=== PATIENT | female | born 1955 | race Caucasian/White ===

== ENCOUNTER → 2018-02-28 | Outpatient (CLI) | payer MEDICARE, BC ==
[~2018-02-28] MED LIST: None per pt.
[2018-02-28 12:13] LABS: BASOPHILS # (AUTO) 0.05 x10^3/uL (0-0.1); BASOPHILS % (AUTO) 1 % (0-1); EOSINOPHILS # (AUTO) 0.19 x10^3/uL (0-0.4); EOSINOPHILS % (AUTO) 3 % (1-7); LYMPHOCYTES # (AUTO) 1.79 x10^3/uL (1-3.4); LYMPHOCYTES % (AUTO) 27 % (22-44); MD NO; MEAN CORPUSCULAR HEMOGLOBIN 27.6 pg (27.0-34.8); MEAN CORPUSCULAR HGB CONC 33.7 g/dL (32.4-35.8); MEAN CORPUSCULAR VOLUME 81.9 fL (80-100); MONOCYTES # (AUTO) 0.74 x10^3/uL (0.2-0.8); MONOCYTES % (AUTO) 11 % (2-9); NEUTROPHILS # (AUTO) 3.83 x10^3/uL (1.8-6.8); NEUTROPHILS % (AUTO) 58 % (42-75); PLATELET COUNT 332 x10^3/uL (130-400); RED BLOOD COUNT 4.75 x10^6/uL (3.82-5.3); RED CELL DISTRIBUTION WIDTH 15.1 % (9.6-15.2)
[2018-02-28 12:21] LABS: INTERNATIONAL NORMALIZED RATIO 0.95 (0.93-1.1); PROTHROMBIN TIME 9.9 Seconds (9.6-11.5)
[2018-02-28 12:23] LABS: ALANINE AMINOTRANSFERASE 24 U/L (12-78); ALBUMIN 3.4 g/dL (3.4-5.0); ANION GAP 7 mmol/L (5-15); CHLORIDE 108 mmol/L (98-107); CREATININE 0.76 mg/dL (0.55-1.02)
[2018-02-28 12:26] LABS: ALKALINE PHOSPHATASE 143 U/L (45-117); BILIRUBIN,TOTAL 0.4 mg/dL (0.2-1.0); TOTAL PROTEIN 7.8 g/dL (6.4-8.2)
== END | disposition home or self-care (01) ==
LOC: STAR 11:20
PROVIDERS: ATTEND Specialist
DX: Z01.818 Encounter for other preprocedural examination (principal); C54.1 Malignant neoplasm of endometrium
CPT/HCPCS: 36415; 71046; 80053; 85025; 85610; 85730; 86304; 93005

== ENCOUNTER 2018-03-04 10:20 | Inpatient (IN) | payer MEDICARE, BC ==
[~2018-03-04] VITALS: Ht 157.5 cm; Wt 97.9 kg
[~2018-03-04 10:20] MED LIST changes: +BUPIVACAINE/PF-EPI 0.25% 1:200K ONE; +HEPARIN 1,000 UNITS/ML, 10ML ONE; +INDOCYANINE GREEN 25 MG VIAL ONE
[2018-03-04] MEDS ORDERED: LACTATED RINGERS 1,000 ML IV SCH (10:37)
[2018-03-04] MEDS ORDERED: LIDOCAINE-MPF 1%, 2ML INFIL ONE (11:00)
[2018-03-04] MEDS ORDERED: MIDAZOLAM 1 MG/ML, 2ML ONE (13:56)
[2018-03-04] MEDS ORDERED: FENTANYL PF 250 MCG/5ML ONE (13:56)
[2018-03-04] MEDS ORDERED: LABETALOL 5MG/ML, 20ML ONE (15:22)
[2018-03-04] MEDS ORDERED: CLINDAMYCIN 150 MG/ML, 6ML ONE (15:29)
[2018-03-04] MEDS ORDERED: CEFAZOLIN 1,000 MG ONE (16:03)
[2018-03-04] MEDS ORDERED: ROCURONIUM 10MG/ML,5ML ONE (16:03)
[2018-03-04] MEDS ORDERED: PROPOFOL 10 MG/ML, 20ML ONE (16:03)
[2018-03-04] MEDS ORDERED: DEXAMETHASONE 4 MG/ML, 1ML ONE (16:03)
[2018-03-04] MEDS ORDERED: ONDANSETRON 2MG/ML, 2ML ONE (16:03)
[2018-03-04] MEDS ORDERED: NEOSTIGMINE 1 MG/ML, 10ML ONE (16:03)
[2018-03-04] MEDS ORDERED: GLYCOPYRROLATE 0.2MG/1ML, 5ML ONE (16:03)
[2018-03-04] MEDS ORDERED: SUCCINYLCHOLINE 20 MG/ML, 10ML ONE (16:03)
[2018-03-04] MEDS ORDERED: FENTANYL PF 100 MCG/2ML ONE (16:21)
[2018-03-04] MEDS ORDERED: ONDANSETRON 2MG/ML, 2ML IV PRN ×3 (18:30→20:00)
[2018-03-04] MEDS ORDERED: PROMETHAZINE 25 MG/ML, 1ML IV PRN (18:30)
[2018-03-04] MEDS ORDERED: LABETALOL 5MG/ML, 20ML IV PRN (18:30)
[2018-03-04] MEDS ORDERED: hydrALAzine 20 MG/ML, 1ML IV PRN (18:30)
[2018-03-04] MEDS ORDERED: OXYcodone 5 MG/5 ML ORAL.SOL UDC PO PRN ×2 (18:30)
[2018-03-04] MEDS ORDERED: ONDANSETRON ODT 8 MG PO PRN (18:30)
[2018-03-04] MEDS ORDERED: FENTANYL PF 100 MCG/2ML IV PRN ×2 (18:30)
[2018-03-04] MEDS ORDERED: HYDROcodone/APAP 7.5-325MG/15ML UDC PO PRN (18:30)
[2018-03-04] MEDS ORDERED: ACETAMINOPHEN 325 MG TABLET PO PRN ×2 (18:30)
[2018-03-04] MEDS ORDERED: MORPHINE SULFATE 4 MG/ML, 1ML IVPush PRN (18:30)
[2018-03-04] MEDS ORDERED: HYDROmorphone 1 MG/ML, 1ML IV PRN (18:30)
[2018-03-04 19:30] VITALS: BP 106/46
[2018-03-04] MEDS ORDERED: OXYcodone/APAP 5/325MG TABLET PO PRN (20:00)
[2018-03-04] MEDS ORDERED: KETOROLAC 30 MG/1 ML IV PRN (20:00)
[2018-03-04] MEDS: LACTATED RINGERS 1,000 ML IV SCH (20:00)
[2018-03-04] MEDS ORDERED: SODIUM CHLORIDE FLUSH 3ML SYRINGE IVF SCH (21:00)
[2018-03-04] MEDS: SODIUM CHLORIDE FLUSH 10ML SYR IVF SCH (21:00)
[2018-03-05 00:12] VITALS: BP 126/66
[2018-03-05 03:19] VITALS: BP 139/70
[2018-03-05 05:10] LABS: BASOPHILS # (AUTO) 0.06 x10^3/uL (0-0.1); BASOPHILS % (AUTO) 1 % (0-1); EOSINOPHILS % (AUTO) 0 % (1-7); LYMPHOCYTES # (AUTO) 0.85 x10^3/uL (1-3.4); LYMPHOCYTES % (AUTO) 8 % (22-44); MD NO; MEAN CORPUSCULAR HEMOGLOBIN 27.5 pg (27.0-34.8); MEAN CORPUSCULAR HGB CONC 33.1 g/dL (32.4-35.8); MEAN PLATELET VOLUME 9.4 fL (7.4-10.4); MONOCYTES # (AUTO) 0.63 x10^3/uL (0.2-0.8); MONOCYTES % (AUTO) 6 % (2-9); NEUTROPHILS # (AUTO) 9.12 x10^3/uL (1.8-6.8); NEUTROPHILS % (AUTO) 86 % (42-75); PLATELET COUNT 299 x10^3/uL (130-400); RED BLOOD COUNT 4.42 x10^6/uL (3.82-5.3)
[2018-03-05 05:19] LABS: ANION GAP 6 mmol/L (5-15); CALCIUM 8.3 mg/dL (8.5-10.1); CHLORIDE 108 mmol/L (98-107)
[2018-03-05] MEDS: LACTATED RINGERS 1,000 ML IV SCH (06:00)
[2018-03-05 07:34] VITALS: BP 93/56
[2018-03-05] MEDS: SODIUM CHLORIDE FLUSH 10ML SYR IVF SCH (08:50)
[2018-03-05] MEDS ORDERED: ONDA4TAB10 PO (11:50)
[2018-03-05] MEDS ORDERED: OXYC-306 PO (11:50)
[2018-03-05 14:17] VITALS: BP 112/68
[2018-03-14] MEDS ORDERED: CIPR500T87 PO (12:09)
[2018-03-14] MEDS ORDERED: DEXA4TAB66 PO (12:09)
== END 2018-03-05 15:05 | disposition home or self-care (01) | DRG 740 ==
LOC: OUT 10:20 → 4NOR 19:29 → OUT 20:31 → DCLOUNGE 03-05 14:46
PROVIDERS: ADMIT Specialist; ATTEND Specialist
PROC: 0UT90ZL Resection of Uterus, Supracervical, Open Approach (ICD-10-PCS; 2018-03-04)
PROC: 0UT20ZZ Resection of Bilateral Ovaries, Open Approach (ICD-10-PCS; 2018-03-04)
PROC: 0UT70ZZ Resection of Bilateral Fallopian Tubes, Open Approach (ICD-10-PCS; 2018-03-04)
PROC: 0DBU0ZZ Excision of Omentum, Open Approach (ICD-10-PCS; 2018-03-04)
PROC: 0T768DZ Dilation of Right Ureter with Intraluminal Device, Via Natural or Artificial Opening Endoscopic (ICD-10-PCS; 2018-03-04)
PROC: 8E0W4CZ Robotic Assisted Procedure of Trunk Region, Percutaneous Endoscopic Approach (ICD-10-PCS; principal; 2018-03-04 12:30)
DX: C54.1 Malignant neoplasm of endometrium (principal); C78.6 Secondary malignant neoplasm of retroperitoneum and peritoneum; Z85.42 Personal history of malignant neoplasm of other parts of uterus; Z85.3 Personal history of malignant neoplasm of breast; Z90.12 Acquired absence of left breast and nipple; Z98.84 Bariatric surgery status; Z88.1 Allergy status to other antibiotic agents; I25.2 Old myocardial infarction; Z82.49 Family history of ischemic heart disease and other diseases of the circulatory system; Z80.9 Family history of malignant neoplasm, unspecified
CPT/HCPCS: 36415; 80048; 85025; 86850; 86900; 86923; 88307; J0690; J1100; J1644; J2250; J2405; J2704; J2710; J3010; J3490; C1769; C2617; J0330; J7120

== ENCOUNTER 2018-04-29 05:32 | Day surgery (SDC) | payer MEDICARE, BC ==
[~2018-04-29] VITALS: Ht 157.5 cm; Wt 88.8 kg
[~2018-04-29 05:32] MED LIST changes: -BUPIVACAINE/PF-EPI 0.25% 1:200K ONE; +CIPR500T87 PO; +DEXA4TAB66 PO; -HEPARIN 1,000 UNITS/ML, 10ML ONE; -INDOCYANINE GREEN 25 MG VIAL ONE; +ONDA4TAB10 PO; +OXYC-306 PO
[2018-04-29] MEDS ORDERED: LACTATED RINGERS 1,000 ML IV SCH (06:02)
[2018-04-29 06:03] VITALS: BP 132/85
[2018-04-29] MEDS ORDERED: PLEASE ENTER HEIGHT AND WEIGHT MC SCH (06:30)
[2018-04-29] MEDS ORDERED: PROTAMINE SULFATE 10 MG/ML, 5ML ONE (07:01)
[2018-04-29] MEDS ORDERED: BUPIVACAINE/PF-EPI 0.25% 1:200K ONE (07:02)
[2018-04-29] MEDS ORDERED: HEPARIN 1,000 UNITS/ML, 10ML ONE (07:02)
[2018-04-29] MEDS ORDERED: FENTANYL PF 100 MCG/2ML ONE (07:08)
[2018-04-29] MEDS ORDERED: PROPOFOL 50 ML ONE (07:09)
[2018-04-29] MEDS ORDERED: CLINDAMYCIN 150 MG/ML, 6ML ONE (07:13)
[2018-04-29] MEDS ORDERED: MIDAZOLAM 1 MG/ML, 2ML ONE (07:36)
[2018-04-29] MEDS ORDERED: ONDANSETRON ODT 8 MG PO ONE (08:00)
[2018-04-29] MEDS ORDERED: DIPHENHYDRAMINE 50 MG/ML, 1ML IVPush PRN (08:00)
[2018-04-29] MEDS ORDERED: ACETAMINOPHEN 500 MG TABLET PO ONE (08:00)
[2018-04-29] MEDS ORDERED: PROMETHAZINE 25 MG/ML, 1ML IV PRN (08:00)
[2018-04-29] MEDS ORDERED: MIDAZOLAM 1 MG/ML, 2ML IV PRN (08:00)
[2018-04-29] MEDS ORDERED: PROMETHAZINE 25 MG SUPP PR PRN (08:00)
[2018-04-29] MEDS ORDERED: FENTANYL PF 100 MCG/2ML IV PRN (08:00)
[2018-04-29] MEDS ORDERED: MEPERIDINE/PF 25MG/0.5ML IVPush PRN (08:00)
[2018-04-29] MEDS ORDERED: OxyconTIN ER 10 MG TAB.ER PO ONE (08:00)
[2018-04-29] MEDS ORDERED: PROMETHAZINE 12.5 MG SUPP PR PRN (08:00)
[2018-04-29] MEDS ORDERED: ACETAMINOPHEN 325 MG TABLET PO PRN (08:00)
[2018-04-29] MEDS ORDERED: EPHEDRINE 50 MG/ML, 1ML IM PRN (08:00)
[2018-04-29] MEDS ORDERED: MORPHINE SULFATE 4 MG/ML, 1ML IVPush PRN (08:00)
[2018-04-29] MEDS ORDERED: GABAPENTIN 300 MG CAPSULE PO ONE (08:00)
[2018-04-29] MEDS ORDERED: OXYcodone 5 MG/5 ML ORAL.SOL UDC PO PRN (08:00)
[2018-04-29] MEDS ORDERED: ONDANSETRON ODT 8 MG PO PRN (08:00)
[2018-04-29] MEDS ORDERED: DEXAMETHASONE 4 MG/ML, 1ML ONE (09:03)
[2018-04-29] MEDS ORDERED: ONDANSETRON 2MG/ML, 2ML ONE (09:03)
== END 2018-04-29 11:04 | disposition home or self-care (01) ==
LOC: OUT 05:32
PROVIDERS: ATTEND Specialist
DX: Z45.2 Encounter for adjustment and management of vascular access device (principal); C54.1 Malignant neoplasm of endometrium
CPT/HCPCS: 36415; 71045; 77001; 86850; 86900; C1788; J1100; J1644; J2250; J2405; J2704; J3010; J7120; Q0162; J2720

== ENCOUNTER → 2018-07-03 | Outpatient (CLI) | payer BC, MEDICARE ==
[2018-07-03 11:56] LABS: BASOPHILS # (AUTO) 0.01 x10^3/uL (0-0.1); BASOPHILS % (AUTO) 0 % (0-1); EOSINOPHILS # (AUTO) 0.01 x10^3/uL (0-0.4); EOSINOPHILS % (AUTO) 0 % (1-7); LYMPHOCYTES # (AUTO) 1.84 x10^3/uL (1-3.4); LYMPHOCYTES % (AUTO) 52 % (22-44); MD SCAN; MEAN CORPUSCULAR HEMOGLOBIN 31.6 pg (27.0-34.8); MEAN CORPUSCULAR HGB CONC 34.7 g/dL (32.4-35.8); MEAN CORPUSCULAR VOLUME 91.1 fL (80-100); MONOCYTES # (AUTO) 0.37 x10^3/uL (0.2-0.8); MONOCYTES % (AUTO) 11 % (2-9); NEUTROPHILS # (AUTO) 1.29 x10^3/uL (1.8-6.8); NEUTROPHILS % (AUTO) 37 % (42-75); PLATELET COUNT 34 x10^3/uL (130-400)
[2018-07-03 12:11] LABS: MICROSCOPIC INDICATED
[2018-07-03 12:49] LABS: ALANINE AMINOTRANSFERASE 20 U/L (12-78); ALBUMIN 3.1 g/dL (3.4-5.0); ANION GAP 9 mmol/L (5-15); CALCIUM 8.8 mg/dL (8.5-10.1); CHLORIDE 111 mmol/L (98-107); CREATININE 0.72 mg/dL (0.55-1.02)
[2018-07-03 12:51] LABS: ALKALINE PHOSPHATASE 123 U/L (45-117); BILIRUBIN,TOTAL 0.5 mg/dL (0.2-1.0); TOTAL PROTEIN 7.1 g/dL (6.4-8.2)
== END | disposition home or self-care (01) ==
LOC: LAB 10:46
PROVIDERS: ATTEND Specialist
DX: R30.0 Dysuria (principal)
CPT/HCPCS: 36415; 80053; 81001; 85025; 86304; 87086

== ENCOUNTER → 2018-07-30 | Outpatient (CLI) | payer BC, MEDICARE ==
[~2018-07-30] MED LIST changes: +OMNIPAQUE 350 MG/ML, 100ML BOTTLE ONE
== END | disposition home or self-care (01) ==
LOC: CFH 08:29
PROVIDERS: ATTEND Specialist
DX: K76.0 Fatty (change of) liver, not elsewhere classified (principal); C54.1 Malignant neoplasm of endometrium; Z98.84 Bariatric surgery status; Z92.21 Personal history of antineoplastic chemotherapy
CPT/HCPCS: 71260; 74177; Q9967

== ENCOUNTER → 2018-10-30 | Outpatient (CLI) | payer BC, MEDICARE | END | disposition home or self-care (01) | LOC: RAD 09:35 | PROVIDERS: ATTEND Specialist | DX: C54.1 Malignant neoplasm of endometrium (principal); K76.9 Liver disease, unspecified | CPT/HCPCS: 71260; 74177; J1642; Q9967 ==

== ENCOUNTER → 2019-06-26 | Outpatient (CLI) | payer BC, MEDICARE ==
[~2019-06-26] VITALS: Ht 157.5 cm; Wt 92.4 kg
[~2019-06-26] MED LIST changes: +BEVACIZUMAB IV ONE; +GABA100C PO; +MULT-658 PO; -OMNIPAQUE 350 MG/ML, 100ML BOTTLE ONE; +SODIUM CHLORIDE 0.9% IV ONE
[2019-06-26 13:06] VITALS: BP 154/79
== END | disposition home or self-care (01) ==
LOC: INFUSION 10:36
PROVIDERS: ATTEND Specialist
DX: C54.1 Malignant neoplasm of endometrium (principal); Z85.3 Personal history of malignant neoplasm of breast; Z88.1 Allergy status to other antibiotic agents
CPT/HCPCS: 96413; J9035

== ENCOUNTER 2019-07-15 12:06 | Emergency (ER) ==
[~2019-07-15] VITALS: Ht 157.5 cm; Wt 92.5 kg
[~2019-07-15 12:06] MED LIST changes: -BEVACIZUMAB IV ONE; -SODIUM CHLORIDE 0.9% IV ONE
--- NOTE | 2019-07-15 12:50 | NUR ---
pt to ed for right sided facial and arm numbness. pt was seen at [facility] yesterday for same. pt states s/s resolved and came back today. pt reports rle weakness that may be related to chemo. pt denies numbness at this time. pt connected to all monitors. vss. attempt for piv x1 by this rn. will attempt with us.
[2019-07-15] MEDS ORDERED: ASPIRIN 81 MG TABLET CHEW PO ONE (13:00)
--- NOTE | 2019-07-15 13:05 | NUR ---
pt to mri.
[2019-07-15] MEDS ORDERED: ASPIRIN 81 MG TABLET CHEW ONE (13:21)
--- NOTE | 2019-07-15 13:54 | NUR ---
TASK RN: 2.5 INCH 18 GAUGE PIV PLACED TO RIGHT FOREARM WITH ULTRASOUND (UNABLE TO USE PORT PATIENT UNSURE IF POWERPORT AND NO CURRENT IMAGING AVAILABLE TO CONFIRM OTHERWISE)
--- NOTE | 2019-07-15 13:57 | NUR ---
pt to ct.
--- NOTE | 2019-07-15 14:47 | NUR ---
PT BACK FROM CT. PT REFUSING BP CUFF AT THIS TIME. ALL OTHER VSS ON RA. PT MEDICATED PER OCT. NO NEEDS EXPRESSED. CALL LIGHT WITHIN REACH. AWAITING RESUTLS.
--- NOTE | 2019-07-15 15:06 | NUR ---
PT CONTINUING TO REFUSE BP CUFF. ALL OTHER VSS ON RA. NO NEEDS EXPRESSED. CALL LIGHT WITHIN REACH. AWAITING RESUTLS.
[2019-07-15 16:18] VITALS: BP 160/80
--- NOTE | 2019-07-15 16:18 | NUR ---
ASSUMED CARE FOR DISCHARGE ONLY Patient/Caregiver given discharge instructions and they have confirmed that they understand the instructions. Patient ambulatory with steady gait.
== END 2019-07-15 16:20 | disposition home or self-care (01) ==
LOC: ED 16:05
DX: G43.B0 Ophthalmoplegic migraine, not intractable (principal); R20.2 Paresthesia of skin
CPT/HCPCS: 70496; 70498; 70551; 82962; 93005; 99284

== ENCOUNTER → 2020-01-26 | Outpatient (CLI) | payer BC ==
[~2020-01-26] MED LIST changes: +LENV14CA PO; +LIDOCAINE 1%, 10ML ONE; +OXYC-302 PO
== END | disposition home or self-care (01) ==
LOC: RAD 11:30
PROVIDERS: ATTEND Specialist
DX: R18.8 Other ascites (principal); G89.3 Neoplasm related pain (acute) (chronic)
CPT/HCPCS: 49083; 82042; 84157; 87070; 87075; 87205; 89051; J3490

== ENCOUNTER 2020-02-19 13:54 | Outpatient (CLI) | payer BC ==
[~2020-02-19 13:54] MED LIST changes: -LIDOCAINE 1%, 10ML ONE
[2020-02-19] MEDS ORDERED: LIDOCAINE 1%, 10ML ONE (14:15)
== END 2020-02-19 23:59 | disposition home or self-care (01) ==
LOC: RAD 13:54
PROVIDERS: ATTEND Specialist
DX: C54.1 Malignant neoplasm of endometrium (principal)
CPT/HCPCS: 49083; J3490